=== PATIENT | male | born 1950 | race Caucasian/White ===

== ENCOUNTER 2017-06-03 05:25 | Emergency (ER) | payer SELFPAY ==
[~2017-06-03] VITALS: Ht 170.2 cm; Wt 77.2 kg
[~2017-06-03 05:25] MED LIST: ONDA4TAB35 PO
[2017-06-03 05:27] VITALS: Ht 170.2 cm; Wt 77.2 kg
== END 2017-06-03 06:15 | disposition left against medical advice (07) ==
LOC: E/R 05:25
DX: Z53.21 Procedure and treatment not carried out due to patient leaving prior to being seen by health care provider (principal)

== ENCOUNTER → 2017-07-09 | Outpatient (CLI) | payer MEDICARE, MEDICAID ==
--- NOTE | 2017-07-09 14:56 | RADRPT ---
PROCEDURE: Right knee radiographs. CLINICAL INDICATION: Right knee pain. TECHNIQUE: Four views. Weight bearing. Frontal, lateral, oblique, and patellar view. COMPARISON: No prior studies are available for comparison. FINDINGS: There is no fracture or dislocation. The soft tissues are normal. There are degenerative changes with osteophytes arising from all 3 joint compartment margins. There is medial and lateral joint subarticular sclerosis and deformity. There is lateral shift of tibia re lative to femur. There is no lytic or blastic lesion. There is no radiopaque foreign body. IMPRESSION: 1. Severe degenerative change with deformity and lateral shaft of the tibia. 2. No acute abnormality. RPTAT: QQ .Sam Bowden MD, MD Date Time Electronically viewed and signed by .Sam Bowden MD, on 07/09/2017 14:56 .R/
--- NOTE | 2017-07-09 18:38 | HKNOTE ---
DATE OF SERVICE: 07/09/2017 CHIEF COMPLAINT: Right knee pain. HISTORY OF PRESENT ILLNESS: This is a 67-year-old male with a complaint of right knee pain for the last several years. He has had previous right knee arthroscopic meniscectomy in 1984. His pain has been worsening over the right knee. He has pain when ambulating and climbing stairs. He denies an y groin or back pain. He is able to perform his activities of daily living. He has not had any pre vious treatment. He does not use any assist devices. He does not take any pain medications. GAIT: Antalgic gait. No use of assist devices. RIGHT KNEE: Neutral alignment. Tender over the medial and lateral joint line 0 to 115 degrees, lee nful range of motion. Stable to varus valgus stress. Negative Celestino's, negative anterior drawer . MOTOR STRENGTH: 5/5 quadriceps, hamstrings, tibialis anterior, gastrocsoleus and peroneals. X-RAYS RIGHT KNEE: There is tricompartmental osteoarthritis of the right knee with [id number] art hritic changes. IMPRESSION: A 67-year-old male with a right knee tricompartmental osteoarthritis. PLAN: I discussed treatment options with Mr. Berrios. I discussed risks associated with a right k nee corticosteroid injection which include but are not limited to infection, allergic reaction, cont inued pain, progression of arthritis. He consented to procedure. The right knee was prepped and draped in the usual sterile fashion. An injection consisting of 1 mL of Depo-Medrol along with 3 mL of 1% Lidocaine was injected through the lateral portal. There were no complications. He tolerated the procedure well. He was instructed to ice and elevate the right knee. He can take ibuprofen for pain control. He will follow up within 3 months. Dictated By: BLADIMIR GRACIA/KASIA Conf#: [id number] DID#: [id number]
== END | disposition home or self-care (01) ==
LOC: HKI 14:45
PROVIDERS: ATTEND Orthopaedic Surgery Adult Reconstructive Orthopaedic Surgery
DX: M17.11 Unilateral primary osteoarthritis, right knee (principal)
CPT/HCPCS: 20610; 73564; G0463; J1030